=== PATIENT | male | born 1980 | race Caucasian/White ===

== ENCOUNTER → 2016-08-02 | Day surgery (SDC) | payer OTHER ==
[~2016-08-02] VITALS: Ht 175.3 cm; Wt 87.7 kg
[2016-08-02 06:28] LABS: HCT 45.7 % (42.0-52.0); HGB 16.5 g/dl (13.2-18.0); MCH 29.7 pg (25.0-31.0); MCHC 36.1 g/dL (32.0-36.0); MCV 82.2 fL (78.0-100.0); MPV 9.4 fL (6.0-9.5); RBC 5.56 M/uL (4.70-6.00); RDW 13.2 % (11.5-14.0); WBC 11.5 K/uL (4.0-10.5)
[2016-08-02 06:47] LABS: ALBUMIN 4.5 g/dL (3.5-5.0); BILIRUBIN - TOTAL 0.5 mg/dL (0.1-1.0); CREATININE 0.9 mg/dL (0.7-1.2); GLOBULIN (CALCULATION) 2.8 g/dL (2.2-4.2); TOTAL PROTEIN 7.3 g/dL (6.4-8.3)
== END | disposition home or self-care (01) ==
LOC: FAS 05:37
PROVIDERS: Orthopaedic Surgery
DX: G56.02 Carpal tunnel syndrome, left upper limb (principal); F41.9 Anxiety disorder, unspecified; K21.9 Gastro-esophageal reflux disease without esophagitis; I10 Essential (primary) hypertension; Z98.890 Other specified postprocedural states; Z79.4 Long term (current) use of insulin; Z79.899 Other long term (current) drug therapy; F17.210 Nicotine dependence, cigarettes, uncomplicated
CPT/HCPCS: 36415; 80053; J2405; J2704; J3010

== ENCOUNTER 2020-03-26 16:59 | Emergency (ER) | payer OTHER ==
[~2020-03-26 16:59] MED LIST: BACTRIM DS TAB1 EACH PO; COZAAR50 MG PO; EFFEXOR XR150 MG PO; GEMFIBROZIL600 MG PO; LIPITOR40 MG PO; LOPID600 MG PO; METOPROLOL SUCC25 MG PO; NOVOLOG FL100 UNIT/1 SC; PANTOPRAZOLE SO40 MG PO; TRESIBA FL200 UNIT/1 SC; TRESIBA100 UNIT/1 SC; VANCOMYCIN HC1.25 GM IV; VITAMIN B-650 MG PO; VITAMIN D35000 UNI2 PO; VITAMIN D35000 UNIT PO; ZANAFLEX6 MG PO; ZOFRAN8 MG PO
[2020-03-26 17:56] LABS: BASOPHIL 0.2 % (0-2); EOSINOPHIL 0.3 % (0-5); HCT 42.6 % (42.0-52.0); HGB 14.6 g/dl (13.2-18.0); LYMPHOCYTE 16.5 % (15-48); MCH 30.3 pg (25.0-31.0); MCHC 34.3 g/dL (32.0-36.0); MCV 88.4 fL (78.0-100.0); MONOCYTE 5.8 % (0-12); MPV 9.8 fL (6.0-9.5); NEUTROPHIL 75.9 % (41-80); NRBC 0; PLT 477 K/uL (150-400); RBC 4.82 M/uL (4.70-6.00); RDW 13.2 % (11.5-14.0); WBC 23.1 K/uL (4.0-10.5)
[2020-03-26 18:18] LABS: BILIRUBIN - TOTAL 0.3 mg/dL (0.2-1.0); BUN/CREAT RATIO (CALC) 22.5 RATIO; CREATININE 1.02 mg/dL (0.67-1.17); GLOBULIN (CALCULATION) 3.8 g/dL; POTASSIUM 4.3 mmol/L (3.5-5.1); TOTAL PROTEIN 7.8 g/dL (6.4-8.2)
[2020-03-26 18:24] LABS: LACTIC ACID 1.8 mmol/L (0.4-1.9)
[2020-03-26 18:38] LABS: BILIRUBIN NEGATIVE (NEGATIVE); BLOOD 2+ Ery/uL (NEGATIVE); CLARITY CLEAR (CLEAR); COLOR YELLOW (YELLOW); GLUCOSE (U) 3+ mg/dL (NORMAL); LEUKOCYTES NEGATIVE Leu/uL (NEGATIVE); NITRITE NEGATIVE (NEGATIVE); PROTEIN 2+ mg/dL (NEGATIVE); SPECIFIC GRAVITY 1.025 (1.001-1.030); UROBILINOGEN 0.2 mg/dL (0.2-1.0)
[2020-03-26 18:45] LABS: SQUAMOUS EPITHELIAL CELLS RARE
[2020-05-18] MEDS ORDERED: VOLTAREN100 GM TOP (14:11)
[2020-06-21] MEDS ORDERED: ZPAK PO (09:07)
[2020-06-21] MEDS ORDERED: TRAMADOL HCL50 MG PO (09:07)
== END 2020-03-26 19:30 | disposition home or self-care (01) ==
LOC: FER 16:59
PROVIDERS: Emergency Medicine
DX: D72.829 Elevated white blood cell count, unspecified (principal); I10 Essential (primary) hypertension; E11.9 Type 2 diabetes mellitus without complications; F17.200 Nicotine dependence, unspecified, uncomplicated; Z86.14 Personal history of Methicillin resistant Staphylococcus aureus infection; Z87.19 Personal history of other diseases of the digestive system; Z95.0 Presence of cardiac pacemaker
CPT/HCPCS: 36415; 71045; 80053; 81001; 83605; 84145; 84484; 85025; 86140; 87040; 87088; 93005

== ENCOUNTER 2020-05-23 19:33 | Emergency (ER) | payer OTHER ==
[~2020-05-23 19:33] MED LIST changes: +VOLTAREN100 GM TOP
[2020-05-23 21:49] LABS: EOSINOPHIL 2.5 % (0-5); HCT 37.4 % (42.0-52.0); HGB 12.5 g/dl (13.2-18.0); LYMPHOCYTE 31.8 % (15-48); MCH 30.6 pg (25.0-31.0); MCHC 33.4 g/dL (32.0-36.0); MCV 91.7 fL (78.0-100.0); MONOCYTE 6.3 % (0-12); MPV 10.5 fL (6.0-9.5); NRBC 0; PLT 444 K/uL (150-400); RBC 4.08 M/uL (4.70-6.00); RDW 13.1 % (11.5-14.0); WBC 13.4 K/uL (4.0-10.5)
[2020-05-23 21:53] LABS: INR 1.1 (0.9-1.2); PROTHROMBIN TIME 13.5 SECONDS (11.4-13.6); PTT 33.7 SECONDS (22.2-34.7)
[2020-05-23 22:07] LABS: ALBUMIN 3.2 g/dL (3.4-5.0); BILIRUBIN - TOTAL 0.2 mg/dL (0.2-1.0); BUN/CREAT RATIO (CALC) 13.2 RATIO; CREATININE 1.21 mg/dL (0.67-1.17); GLOBULIN (CALCULATION) 4.9 g/dL; POTASSIUM 4.2 mmol/L (3.5-5.1); TOTAL PROTEIN 8.1 g/dL (6.4-8.2)
[2020-06-21] MEDS ORDERED: TRAMADOL HCL50 MG PO (09:07)
[2020-06-21] MEDS ORDERED: ZPAK PO (09:07)
== END 2020-05-24 01:04 | disposition left against medical advice (07) ==
LOC: FER 19:33
PROVIDERS: Emergency Medicine
DX: R06.02 Shortness of breath (principal); R79.89 Other specified abnormal findings of blood chemistry; R53.1 Weakness; R05 Cough; R09.89 Other specified symptoms and signs involving the circulatory and respiratory systems; J44.9 Chronic obstructive pulmonary disease, unspecified; F17.210 Nicotine dependence, cigarettes, uncomplicated; Z86.14 Personal history of Methicillin resistant Staphylococcus aureus infection; Z53.8 Procedure and treatment not carried out for other reasons
CPT/HCPCS: 36415; 71045; 80053; 83880; 84484; 85025; 85610; 85730; 93005; 94640; 94664; J2930

== ENCOUNTER 2020-06-21 12:57 | Inpatient (IN) | payer OTHER ==
[~2020-06-21 12:57] MED LIST changes: +TRAMADOL HCL50 MG PO; +ZPAK PO
[2020-06-21 13:37] LABS: BASOPHIL 0.4 % (0-2); EOSINOPHIL 0.8 % (0-5); HCT 39.7 % (42.0-52.0); LYMPHOCYTE 8.7 % (15-48); MCHC 35.3 g/dL (32.0-36.0); MCV 87.8 fL (78.0-100.0); MONOCYTE 7.8 % (0-12); MPV 10.3 fL (6.0-9.5); NEUTROPHIL 81.9 % (41-80); NRBC 0; PLT 237 K/uL (150-400); RBC 4.52 M/uL (4.70-6.00); RDW 13.8 % (11.5-14.0)
[2020-06-21 13:40] LABS: WBC 21.6 K/uL (4.0-10.5)
[2020-06-21] MEDS ORDERED: COZAAR50 MG PO (20:17)
[2020-06-21] MEDS ORDERED: EFFEXOR XR150 MG PO (20:18)
[2020-06-21] MEDS ORDERED: ELIQUIS5 MG PO (20:18)
[2020-06-21] MEDS ORDERED: LIPITOR40 MG PO (20:18)
[2020-06-21] MEDS ORDERED: LOPID600 MG PO (20:19)
[2020-06-21] MEDS ORDERED: PROTONIX 40MG T40 MG PO (20:19)
[2020-06-21] MEDS ORDERED: TOPROL XL 50 MG50 MG PO (20:21)
[2020-06-22 05:43] LABS: BASOPHIL 0.5 % (0-2); EOSINOPHIL 2.3 % (0-5); HCT 36.9 % (42.0-52.0); HGB 12.7 g/dl (13.2-18.0); LYMPHOCYTE 18.2 % (15-48); MCH 31.1 pg (25.0-31.0); MCHC 34.4 g/dL (32.0-36.0); MCV 90.4 fL (78.0-100.0); MONOCYTE 8.3 % (0-12); MPV 10.2 fL (6.0-9.5); NEUTROPHIL 70.3 % (41-80); NRBC 0; PLT 225 K/uL (150-400); RBC 4.08 M/uL (4.70-6.00)
[2020-06-22 06:24] LABS: BUN 24 mg/dL (7-18); BUN/CREAT RATIO (CALC) 14.9 RATIO; CHLORIDE 98 mmol/L (98-107); CO2 (BICARBONATE) 25 mmol/L (21-32); CREATININE 1.61 mg/dL (0.67-1.17); GLUCOSE 253 mg/dL (74-106); POTASSIUM 4.5 mmol/L (3.5-5.1)
[2020-06-22 06:25] LABS: C-REACTIVE PROTEIN > 18.00 mg/dL (<=0.90)
[2020-06-23 07:04] LABS: BASOPHIL 0.5 % (0-2); EOSINOPHIL 2.9 % (0-5); HCT 36.8 % (42.0-52.0); HGB 12.4 g/dl (13.2-18.0); LYMPHOCYTE 16.5 % (15-48); MCH 30.4 pg (25.0-31.0); MCHC 33.7 g/dL (32.0-36.0); MCV 90.2 fL (78.0-100.0); MONOCYTE 6.6 % (0-12); MPV 10.6 fL (6.0-9.5); NEUTROPHIL 73.2 % (41-80); NRBC 0; PLT 215 K/uL (150-400); RBC 4.08 M/uL (4.70-6.00); RDW 14.1 % (11.5-14.0); WBC 15.7 K/uL (4.0-10.5)
[2020-06-23 07:36] LABS: ALBUMIN 2.5 g/dL (3.4-5.0); BILIRUBIN - TOTAL 0.4 mg/dL (0.2-1.0); BUN/CREAT RATIO (CALC) 13.8 RATIO; CREATININE 1.45 mg/dL (0.67-1.17); GLOBULIN (CALCULATION) 3.8 g/dL; POTASSIUM 4.2 mmol/L (3.5-5.1); TOTAL PROTEIN 6.3 g/dL (6.4-8.2)
--- NOTE | 2020-06-23 12:54 | NUR ---
06/23/20 Mr. Nolan lives at home with his spouse. They have 6 children between them, 5 live in the home. Mr. Nolan was independent in the home and community prior to admission. - Patient is being followed for home IV antibiotic and home 02 needs. - Awaiting response from [facility] re: if they will accept patient if needed. [facility] nor [facility] will accept [employer] by [employer].
[2020-06-24 05:44] LABS: BASOPHIL 0.6 % (0-2); EOSINOPHIL 2.7 % (0-5); HCT 36.9 % (42.0-52.0); HGB 12.7 g/dl (13.2-18.0); LYMPHOCYTE 13.9 % (15-48); MCH 30.7 pg (25.0-31.0); MCHC 34.4 g/dL (32.0-36.0); MCV 89.1 fL (78.0-100.0); MPV 10.1 fL (6.0-9.5); NEUTROPHIL 76.4 % (41-80); NRBC 0; PLT 233 K/uL (150-400); RBC 4.14 M/uL (4.70-6.00); RDW 13.8 % (11.5-14.0)
[2020-06-24 06:11] LABS: BUN/CREAT RATIO (CALC) 11.6 RATIO; CREATININE 1.29 mg/dL (0.67-1.17); POTASSIUM 3.9 mmol/L (3.5-5.1)
[2020-06-24] MEDS ORDERED: DOXYCYCLINE MO100 MG PO (09:31)
[2020-06-24] MEDS ORDERED: CEFDINIR300 MG PO (09:31)
[2020-06-24] MEDS ORDERED: NORCO 5-325 TA1 EACH PO (09:31)
--- NOTE | 2020-06-24 12:27 | NUR ---
06/24/20 Mr. Nolan is being discharged. A referral was made to [facility] for 02. services are not needed per Dr. Martínez. - Report given to MD Moon RN.
== END 2020-06-24 12:37 | disposition home or self-care (01) | DRG 193 ==
LOC: FER 12:57 → FMS 14:36
PROVIDERS: Emergency Medicine; ADMIT Allergy & Immunology Allergy
DX: J18.9 Pneumonia, unspecified organism (principal); J96.91 Respiratory failure, unspecified with hypoxia; N17.9 Acute kidney failure, unspecified; N18.9 Chronic kidney disease, unspecified; I12.9 Hypertensive chronic kidney disease with stage 1 through stage 4 chronic kidney disease, or unspecified chronic kidney disease; E78.5 Hyperlipidemia, unspecified; E11.22 Type 2 diabetes mellitus with diabetic chronic kidney disease; K21.9 Gastro-esophageal reflux disease without esophagitis; I49.5 Sick sinus syndrome; F17.210 Nicotine dependence, cigarettes, uncomplicated; Z20.822 Contact with and (suspected) exposure to COVID-19; G47.33 Obstructive sleep apnea (adult) (pediatric); F31.9 Bipolar disorder, unspecified; F41.9 Anxiety disorder, unspecified; D50.9 Iron deficiency anemia, unspecified; Z79.01 Long term (current) use of anticoagulants; Z79.899 Other long term (current) drug therapy; Z95.0 Presence of cardiac pacemaker; Z98.890 Other specified postprocedural states
CPT/HCPCS: 36415; 36600; 71045; 71275; 80048; 80053; 81001; 82803; 82962; 83605; 83880; 84145; 84484; 85025; 85379; 86140; 87040; 93005; J0696; J1170; J1885; J2020; J2270; J2405; J7030; J7120; Q9967; U0002

== ENCOUNTER 2020-06-29 20:49 | Emergency (ER) | payer OTHER ==
[~2020-06-29 20:49] MED LIST changes: +CEFDINIR300 MG PO; +DOXYCYCLINE MO100 MG PO; +ELIQUIS5 MG PO; +NORCO 5-325 TA1 EACH PO; +PROTONIX 40MG T40 MG PO; +TOPROL XL 50 MG50 MG PO
[2020-06-29 21:53] LABS: BASOPHIL 0.5 % (0-2); EOSINOPHIL 1.2 % (0-5); HCT 39.5 % (42.0-52.0); HGB 13.2 g/dl (13.2-18.0); LYMPHOCYTE 13.6 % (15-48); MCH 30.6 pg (25.0-31.0); MCHC 33.4 g/dL (32.0-36.0); MCV 91.4 fL (78.0-100.0); MPV 9.7 fL (6.0-9.5); NEUTROPHIL 77.9 % (41-80); NRBC 0; PLT 519 K/uL (150-400); RBC 4.32 M/uL (4.70-6.00); RDW 13.4 % (11.5-14.0); WBC 24.2 K/uL (4.0-10.5)
[2020-06-29 21:58] LABS: INR 1.24 (0.9-1.2); PROTHROMBIN TIME 14.8 SECONDS (11.4-13.6); PTT 45.8 SECONDS (22.2-34.7)
[2020-06-29 22:06] LABS: ALBUMIN 2.6 g/dL (3.4-5.0); BILIRUBIN - TOTAL 0.3 mg/dL (0.2-1.0); BUN/CREAT RATIO (CALC) 15.7 RATIO; CREATININE 1.66 mg/dL (0.67-1.17); GLOBULIN (CALCULATION) 4.7 g/dL; POTASSIUM 4.9 mmol/L (3.5-5.1); TOTAL PROTEIN 7.3 g/dL (6.4-8.2)
[2020-06-30 02:53] LABS: LDH 292 U/L (85-227)
== END 2020-06-30 09:11 | disposition other institution (70) ==
LOC: FER 20:49
PROVIDERS: Emergency Medicine Emergency Medical Services
DX: J18.9 Pneumonia, unspecified organism (principal); J96.01 Acute respiratory failure with hypoxia; J90 Pleural effusion, not elsewhere classified; J93.9 Pneumothorax, unspecified; I10 Essential (primary) hypertension; E11.9 Type 2 diabetes mellitus without complications; F17.200 Nicotine dependence, unspecified, uncomplicated; Z95.0 Presence of cardiac pacemaker; Z20.822 Contact with and (suspected) exposure to COVID-19; Z98.890 Other specified postprocedural states
CPT/HCPCS: 36415; 36600; 71045; 71275; 80053; 82728; 82803; 83605; 83615; 83880; 84484; 85025; 85610; 85730; 87040; 93005; 94640; 94664; 96365; 96366; 96375; 96376; J1100; J1940; J2020; J2060; J2250; J2543; J2704; J3010; J7030; Q9967; U0002